=== PATIENT | male | born 1980 ===

== ENCOUNTER 2025-04-27 06:17 | Day surgery (SDC) | payer BC, SELFPAY | END 2025-04-27 11:39 | disposition home or self-care (01) | LOC: GI 06:17 | PROVIDERS: ATTENDING PHYSICIAN Internal Medicine Gastroenterology | DX: Z12.11 Encounter for screening for malignant neoplasm of colon (principal); K57.30 Diverticulosis of large intestine without perforation or abscess without bleeding; K64.8 Other hemorrhoids; D12.3 Benign neoplasm of transverse colon | CPT/HCPCS: 45385; 88305 ==